=== PATIENT | male | born 1980 ===

== ENCOUNTER 2022-04-26 23:53 | Emergency (ER) | payer OTHER ==
[~2022-04-26] VITALS: Ht 177.8 cm; Wt 81.6 kg
[2022-04-27] MEDS ORDERED: CEPHALEXIN500 MG PO (01:09)
== END 2022-04-27 01:15 | disposition home or self-care (01) ==
LOC: ER 23:53
DX: S61.216A Laceration without foreign body of right little finger without damage to nail, initial encounter (principal); W25.XXXA Contact with sharp glass, initial encounter; Y93.89 Activity, other specified; Y92.098 Other place in other non-institutional residence as the place of occurrence of the external cause; Z88.5 Allergy status to narcotic agent